=== PATIENT | male | born 1970 | race African-American/Black ===

== ENCOUNTER → 2018-08-28 | Outpatient (CLI) | payer BC ==
--- NOTE | 2018-08-28 15:36 | RADIOLOGY REPORT (SQ) ---
EXAM DESCRIPTION: FOOT LEFT COMPLETE COMPLETED DATE/TIME: 08/28/2018 3:11 pm REASON FOR STUDY: PAIN IN LEFT FOOT M79.672 PAIN IN LEFT FOOT COMPARISON: None. NUMBER OF VIEWS: Three views. TECHNIQUE: AP, lateral and oblique radiographic images acquired of the left foot. LIMITATIONS: None. FINDINGS: MINERALIZATION: Normal. BONES: No acute fracture or dislocation. Calcaneal spurs. JOINTS: Moderate to moderate severe joint space narrowing and erosive changes at the second and thir d metatarsophalangeal joints and proximal interphalangeal joint of the fifth toe. Mild degenerative changes at the first metatarsophalangeal and interphalangeal joints of the great toe. Mild to moderate joint space narrowing at the tarsal-metatarsal joints with mild subchondral sclerosi s and erosive changes. Moderate joint space narrowing and small erosive changes involving the left a nkle. SOFT TISSUES: No soft tissue swelling. No foreign body. OTHER: No other significant finding. IMPRESSION: 1. Moderate joint disease involving the ankle, forefoot and midfoot as above. 2. No acute osseous findings. 3. Calcaneal spur. TECHNICAL DOCUMENTATION: JOB ID: [id number] [employer]- All Rights Reserved Reading location - IP/workstation name: [email or web address]
== END ==
LOC: OD 14:56
PROVIDERS: ATTEND Physician Assistant
DX: M79.672 Pain in left foot (principal)